=== PATIENT | female | born 1945 | race Caucasian/White ===

== ENCOUNTER 2019-02-16 16:09 | Inpatient (IN) ==
[2019-02-16 17:34] LABS: HEMATOCRIT 42.7 % (37.0-47.0); HEMOGLOBIN 14.7 g/dL (12.0-16.0); MCH 33.3 PG (27-31); MCHC 34.4 g/dL (33-37); MCV 96.8 FL (81-99); RBC 4.41 XMIL (4.2-5.4); RDW 13.8 % (11.5-14.5); WBC 9.52 X1000 (4.8-10.8)
--- NOTE | 2019-02-16 17:36 | Diag Imaging Result Doc PS360 ---
CHEST-PORTABLE - 02/16/2019 INDICATION: dyspnea COMPARISON: None FINDINGS: Lungs are very hyperexpanded compatible with COPD. There has been prior right mastectomy and there are surgical clips in the right axillary soft tissues. Heart size is normal. No infiltrates or edema. There is left hilar enlargement. IMPRESSION: Advanced COPD. Possible left hilar enlargement. Follow-up two-view chest x-ray or chest CT recommended. Electronically signed by Mal Fernandez 02/16/2019 5:34 PM
[2019-02-16 18:05] LABS: AGAP 15; BUN 14 mg/dL (8-22); CALCIUM 9.7 mg/dL (8.8-10.2); CHLORIDE 100 mmol/L (98-107); COSMO 280; CREATININE 0.9 mg/dL (0.5-0.9); ESTIMATED GFR > 60; GLUCOSE 137 mg/dL (70-104); POTASSIUM 4.5 mmol/L (3.5-5.1); SODIUM 139 mmol/L (136-145); TCO2 24 mmol/L (25-35)
--- NOTE | 2019-02-16 19:54 | Diag Imaging Result Doc PS360 ---
CT ANGIOGRM PULMONARY ARTERIES - 02/16/2019 INDICATION: HYPOXIA, TACHYCARDIA, D DIMER 7.38 TECHNIQUE: Axial CT images were obtained after administering intravenous contrast. Coronal MIP images were generated. COMPARISON: None FINDINGS: There are extensive bilateral pulmonary emboli. There are large emboli in all the lobar pulmonary arteries and several segmental arteries. There is right heart enlargement indicating right heart strain. The lungs are grossly clear. Bones are intact. IMPRESSION: Extensive bilateral pulmonary emboli with a high clot burden. This report was discussed with [facility] emergency department RN on 02/16/2019 at 7:45 PM and was readback. This exam was performed using automated exposure control, adjustment of mA or kV according to patient size, and/or use of iterative reconstruction technique Electronically signed by Mal Fernandez 02/16/2019 7:51 PM
[2019-02-16] MEDS ORDERED: PHENERGAN IV PRN (20:22)
[2019-02-16] MEDS ORDERED: LOVENOX SUBQ ONE (20:22)
[2019-02-16] MEDS ORDERED: SODIUM CHLORIDE 0.9% INJ PRN (20:22)
[2019-02-16] MEDS ORDERED: TYLENOL PO PRN ×2 (20:22→22:24)
[2019-02-16] MEDS: NS 1,000 ML IV SCH (21:19)
[2019-02-17] MEDS ORDERED: CARDIZEM IV ONE ×2 (01:16→01:32)
--- NOTE | 2019-02-17 02:13 | EKG Report ---
Test Performed on : 02/17/2019 00:57:48 AM Test Reason : possible afib Blood Pressure : / mmHG Vent. Rate : 123 BPM Atrial Rate : 122 BPM P-R Int : 000 ms QRS Dur : 120 ms QT Int : 344 ms P-R-T Axes : 000 076 -01 degrees QTc Int : 492 ms Atrial fibrillation. with rapid ventricular response. Nonspecific intraventricular conduction delay ST & T wave abnormality, consider inferior ischemia Abnormal ECG When compared with ECG of 16-FEB-2019 16:17, (Unconfirmed) Atrial fibrillation. has replaced Sinus rhythm. Minimal criteria for Inferior infarct are no longer present Confirmed by Jennifer MICHELLE, Andrés Alcala ([id number]) on 02/27/2019 9:24:22 PM
[2019-02-17] MEDS: LANOXIN IV ONE ×2 (02:54→03:21)
[2019-02-17 05:28] LABS: BASO# 0.01 X1000 (0.0-0.2); BASO% 0.1 % (0.0-0.8); HEMATOCRIT 39.9 % (37.0-47.0); HEMOGLOBIN 13.6 g/dL (12.0-16.0); IMM GRAN# 0.07 X1000 (0.0-0.04); IMM GRAN% 0.8 % (0.0-0.5); LYMPH# 0.92 X1000 (1.2-3.4); LYMPH% 10.2 % (20.5-51.1); MCH 33.7 PG (27-31); MCHC 34.1 g/dL (33-37); MCV 98.8 FL (81-99); MONO# 0.87 X1000 (0.11-0.59); MONO% 9.6 % (1.7-9.3); MPV 10.8 FL (7.4-10.4); NEUT# 7.15 X1000 (1.4-6.5); NEUT% 79.3 % (42.2-75.2); PLT 150 X1000 (130-400); RBC 4.04 XMIL (4.2-5.4); WBC 9.02 X1000 (4.8-10.8)
[2019-02-17 06:03] LABS: AGAP 16; BUN 11 mg/dL (8-22); CHLORIDE 102 mmol/L (98-107); COSMO 274; CREATININE 0.5 mg/dL (0.5-0.9); ESTIMATED GFR > 60; GLUCOSE 152 mg/dL (70-104); POTASSIUM 4.1 mmol/L (3.5-5.1); SODIUM 136 mmol/L (136-145); TCO2 18 mmol/L (25-35)
[2019-02-17] MEDS ORDERED: CORDARONE 360 MG/D5W 360 MG/200 ML IV.SOLN IV ONE (08:45)
[2019-02-17] MEDS ORDERED: ATIVAN IV PRN (08:58)
--- NOTE | 2019-02-17 09:12 | EKG Report ---
Test Performed on : 02/16/2019 4:17:45 PM Test Reason : ED. No order in [place] Blood Pressure : / mmHG Vent. Rate : 116 BPM Atrial Rate : 116 BPM P-R Int : 180 ms QRS Dur : 126 ms QT Int : 320 ms P-R-T Axes : 080 074 014 degrees QTc Int : 444 ms Sinus tachycardia. with occasional premature ventricular complexes. Nonspecific intraventricular block Cannot rule out Inferior infarct , age undetermined T wave abnormality, consider anterior ischemia Abnormal ECG When compared with ECG of 10-MAY-2016 06:54, premature ventricular complexes. are now present Vent. rate has increased BY 46 BPM Nonspecific intraventricular block has replaced Right bundle branch block Unconfirmed Result
--- NOTE | 2019-02-17 10:13 | CARDIOLOGY CONSULTATION ---
DATE: 02/17/2019 REQUESTING PHYSICIANS: The services of Dr. Boyer and Dr. Hector Mitchell. REASON FOR CONSULTATION: The patient presents with significant pulmonary embolism and atrial fibrillation. CHIEF COMPLAINT: Dyspnea. HISTORY OF PRESENT ILLNESS: Mrs. Teague is a pleasant, 73-year-old, female, who states that she had been doing quite well. She went on a trip to [facility], [place], and [place], and flew back from [place] and into [facility] on 02/07/2019. Upon arrival, she felt slightly unusual. She thought that she had gotten a cold, and felt progressively more tired over the course of the ensuing few days. Finally, a couple of days prior to admission, she was frankly dyspneic when performing physical activities. She did not experience any pain in the legs or swelling of the legs. No chest pain or syncope. She presented to the ER yesterday upon advice from Dr. Mitchell, who was covering for Dr. Boyer. Upon presentation, a chest x-ray showed advanced COPD with possible hilar enlargement on the left side. Electrocardiogram initially showed sinus tachycardia, PVCs. A pulmonary arteriogram was done yesterday at 6 p.m., and that shows extensive bilateral pulmonary emboli with a high clot burden. The patient subsequently overnight has developed atrial fibrillation with rapid response. She was given IV Cardizem, and that has resulted into some sinus pauses. Eventually, at the time when I walked into her room to see her at about 9:20 in the morning, today, 02/17/2019, she converted back to sinus rhythm. She is lying in bed. She is not having any chest pain or dyspnea at this time. She seems to be comfortable. The patient, at this time, states that she is not in any painful distress or having any unusual symptoms. PAST MEDICAL HISTORY: Positive for an episode of paroxysmal atrial flutter that was very short lasting back in 04/2016. No other history of heart disease. She has had hypothyroidism. PAST SURGICAL HISTORY: Positive for mastectomy in 1999 for breast cancer. She has had appendectomy. HOME MEDICATIONS: She is presently taking Synthroid 112 mcg daily. SOCIAL HISTORY: The patient has been for 50 years, and the reason for her travel to [facility] was to celebrate her 50th anniversary with her . They have two grown up children. Her is in the room with her. 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 She is not a smoker nor a drinker. REVIEW OF SYSTEMS: The patient has not experienced any change in her chest symptoms or abdominal symptoms or musculoskeletal symptoms or ENT visual. No skin disorder. No psychiatric illness. No neurological issues. No genitourinary complaints. No immunity issues. ALLERGIES: No allergies. PHYSICAL EXAMINATION: Vital Signs: Right now, pulse has slowed down to 95 beats per minute, blood pressure is 100/50, temperature 97.8 degrees, respirations 24. General: She is awake, alert, in no distress. She does not appear to be ill. HEENT: Unremarkable. Chest: Sounds fairly clear to auscultation and percussion. Heart: Heart sounds are regular and rhythmic at this time with a third heart sound noted over the left sternal border. Abdomen: Soft, nontender. Extremities: Good pulses. No peripheral edema. I cannot pecan picker any swelling of the legs. Neurological: Follows commands. Moves all 4 extremities. LABORATORY DATA: Sodium is 136, potassium 4.1, BUN 11, creatinine 0.5. Troponin is 0.043. White cell count is 9020, hemoglobin 13.69%. IMPRESSION: 1. Patient who presented to the hospital with dyspnea of relatively short duration, several days following a long trip to [place]. She demonstrates bilateral pulmonary embolism with a large clot burden. 2. Paroxysmal atrial fibrillation, probably in connection with acute dilatation of the right atrium from the pulmonary embolism. 3. History of hypothyroidism. 4. Remote history of breast cancer. RECOMMENDATION: At this time, I would suggest to keep her on parenteral anticoagulation for several days before switching over to oral anticoagulants. Duration of anticoagulation probably should be for life thereafter. We will order an echocardiogram and ultrasound of the legs. Because she has converted to sinus rhythm, probably the best approach will be to just watch her closely. I am not going to add any drug at this time since we really cannot run the risk of causing profound hypotension on her, which could lead to intractable shock. We will see how she does. If she goes back into atrial fibrillation, then we will put her on amiodarone and Tavares-Synephrine. We will be following her closely in the step- down unit. cc: MD Chidi Smith MD MTDD
--- NOTE | 2019-02-17 10:34 | PROGRESS NOTE ---
DATE: 02/17/2019 SUBJECTIVE: Mrs. Marisa Teague was admitted to [facility] with acute respiratory failure with hypoxia secondary to multiple bilateral pulmonary emboli. She is maintaining O2 saturations of 95% to 96% on 3 L. She does have significant shortness of breath with minimal activity, such as attempting to walk to the bathroom. Last night, she converted into atrial fibrillation with RVR. We loaded her with diltiazem and digoxin, and her heart rate improved. Unfortunately this morning, her heart rate continued to fluctuate in the range of 110 to 130. We transferred her to the PVC unit, where we were going to a load her with amiodarone. She spontaneously converted back to normal sinus rhythm prior to the initiation of amiodarone. She feels very anxious this morning. OBJECTIVE: Vital Signs: Temperature 97.8 degrees, pulse 104, respiratory rate 24, BP 103/50. CV: Tachycardic. Regular S1, S2. Lungs: Clear. Abdomen: Soft, nontender, with active bowel sounds. Extremities: No unilateral edema or palpable cords were noted. ASSESSMENT AND PLAN: 1. Acute respiratory failure with hypoxia secondary to bilateral pulmonary emboli. We will continue Lovenox 1 mg/kg subcutaneously twice daily. Clotting studies, including protein C, protein S, factor V Leiden, and antithrombin 3 are pending. I suspect that her blood clots are related to her recent travels to [place]. We will continue Lovenox 1 mg/kg subcutaneously twice daily. I hope to be able to transition her to oral anticoagulants, such as Xarelto or Eliquis. If her clotting abnormalities are normal, she will need anticoagulation for a period of 6 months. If any of her clotting studies are abnormal, she will need lifelong anticoagulation. 2. Paroxysmal atrial fibrillation with rapid ventricular response. She has converted back to normal sinus rhythm. She had previous workup of paroxysmal atrial flutter in the past. Certainly, elevated pressures in the right side of the heart in the setting of pulmonary emboli will increase the likelihood of arrhythmia, such as atrial fibrillation. We will continue to monitor her closely. I have consulted Dr. Pinedo to see her as well. 3. Hypothyroidism. I will continue levothyroxine 112 mcg daily, and check a TSH and free T4. cc: MD Chidi Morgan MD
--- NOTE | 2019-02-17 11:03 | HISTORY AND PHYSICAL ---
CHIEF COMPLAINT: Shortness of breath and palpitations. HISTORY OF PRESENT ILLNESS: Ms. Marisa Sams is a 73-year-old, lady with a history of primary hypothyroidism and breast cancer, status post right mastectomy, who is followed as an outpatient by Dr. Chidi Boyer. She presented to the ER with a 1-week history of shortness of breath and persistent palpitations with her heart rate in the range of 110 to 130. She reported that she had shortness of breath with minimal activity. She felt very weak and lethargic, and unable to perform activities of daily living. Her heart constantly raced away with her. She denied any PND, orthopnea, or increasing peripheral edema. She did not have any unexplained cough, chest pain, or increasing peripheral edema. Her chest x-ray demonstrated COPD type changes but no evidence of interstitial edema, effusions, or pneumoniae. Interestingly, she had recently returned home from a trip to [facility]. She has had no previous history of a DVT or PTE. Her D-dimer was elevated at 7.38. A CT pulmonary angiogram demonstrated multiple bilateral pulmonary emboli. PAST MEDICAL HISTORY: Paroxysmal atrial flutter, breast cancer, status post right mastectomy, primary hypothyroidism. PAST SURGICAL HISTORY: Bilateral cataract excision, right mastectomy. ALLERGIES: No known drug allergies. FAMILY HISTORY: Her father of complications of pancreatic cancer. MEDICATIONS: Levothyroxine 112 mcg daily. SOCIAL HISTORY: She is and lives with her spouse. She does not smoke. She does consume alcoholic beverages. REVIEW OF SYSTEMS: She denies any recent weight gain or weight loss. HEENT: She wears glasses. Cardiovascular: See HPI. Pulmonary: See HPI. GI: No reflux, dysphagia, melena, hematochezia, change in bowel habits, or rectal bleeding. Endocrine: No polyuria, no polydipsia. No cold or heat intolerance. Skin: No easy bruisability. : No leakage of urine with coughing or laughing. Skin: No easy bruisability. Neurologic: No migraines or seizures. Psychiatric: No history of depression. PHYSICAL EXAMINATION: GENERAL: This is a well-developed, well-nourished, 73-year-old, lady in mild distress secondary to shortness of breath. VITAL SIGNS: Temperature 97.9 degrees, pulse 124, respiratory rate 18, BP 115/79, O2 saturation 97% on room air. HEENT: Fundi with sharp discs and vessels. Pupils equal, round, reactive to light. Extraocular eye movements intact. TMs without bullae. NECK: Supple. No masses, JVD, or bruits. CV: Tachycardic. Regular S1, S2. LUNGS: Clear. ABDOMEN: Soft, nontender, with active bowel sounds. No hepatosplenomegaly. No abdominal bruits. SKIN: No palpable purpura. /RECTAL/BREASTS: Examinations deferred. EXTREMITIES: No peripheral edema or obvious palpable cords on examination. Distal pulses are 2+ and symmetric. NEUROLOGIC: Nonfocal. ASSESSMENT AND PLAN: 1. Acute respiratory failure with hypoxia secondary to bilateral pulmonary emboli. Her oxygen saturation dropped to 88% on room air and we started her on supplemental oxygen. I will begin Lovenox 1 mg/kg subcutaneously twice a day. I will check clotting studies including antithrombin 3, protein C, protein S, factor V Leiden. If there are clotting abnormalities, she will need lifelong anticoagulation. We talked about the benefits and potential side effects of medicines such as Xarelto, Eliquis, Pradaxa, and Coumadin. It would be my hope to transition her to medicines like Eliquis or Xarelto at the time of discharge. 2. Primary hypothyroidism. I will check a TSH and free T4, and adjust the dosage of levothyroxine as needed. 3. Given her clinical presentation and comorbid conditions, I believe that admission to the hospital is absolutely necessary. She is at a high risk for sudden by attempting to treat her as an outpatient. I anticipate that she will be in the hospital for at least 2 midnights and I will therefore place her in inpatient status. We will begin Lovenox 1 mg/kg subcutaneously twice a day because of the underlying pulmonary thromboembolism. cc: MD Chidi Morgan MD
[2019-02-17] MEDS: NS 1,000 ML IV SCH (11:12)
[2019-02-17] MEDS: LOVENOX SUBQ SCH ×2 (11:21→21:04)
[2019-02-17] MEDS: ATIVAN IV PRN ×3 (11:44→21:03)
[2019-02-17] MEDS ORDERED: NS 250 ML ONE (12:27)
[2019-02-17 12:30] LABS: INR 1.06; PROTIME 13.9 Seconds (11.0-16.0)
[2019-02-17] MEDS ORDERED: CORDARONE 540 MG in D5W 289.2 ML IV ONE (14:45)
--- NOTE | 2019-02-17 17:24 | ECHO REPORT ---
ORDER DATE: 02/17/2019 INTERPRETING PHYSICIAN: Dr. Pinedo CLINICAL INDICATIONS: Pulmonary embolism, massive. Borderline elevation of troponin. Dyspnea. M-MODE MEASUREMENTS: Left ventricle end diastole: 2.3 cm. Left ventricle end systole: 2.3 cm. Posterior wall: 0.9 cm. Interventricular septum: 0.9 cm. Left atrium: 2.1 cm. Aortic diameter: 2.9 cm. SUMMARY OF 2-DIMENSIONAL IMAGIN. The left ventricular function is actually normal. Ejection fraction is probably in the order of 65%. There is flattening of the interventricular septum during diastole and a little bit in systole with the septum assuming a "D" shape. That indicates significant pressure and volume overload on the right side of the heart. 2. The right ventricle is dilated significantly and it shows mild to moderate hypokinesis in a global manner. 3. The tricuspid valve shows mild to moderate degree of regurgitation with inferior vena cava that measures up to 19 mmHg. 4. The pulmonary pressure is estimated at 62 mmHg. That is elevated. 5. Mitral valve is grossly normal. Color flow mapping shows no significant regurgitation. 6. Pulsed wave Doppler of mitral inflow shows reversal of the E and the A ratio at 0.7. 7. Tissue Doppler of septal and lateral mitral annulus in this case is normal. E prime is 10 cm. 8. The pulmonic valve shows a mild degree of regurgitation. 9. The aortic valve is normal. 10.A 1.2 cm in width mobile mass is noted within the lumen of the right pulmonary artery distally, consistent with a thrombus. 11.There is no pericardial effusion. CONCLUSIONS: In summary, this study shows the presence of 1. Enlargement of right ventricle with mild to moderate hypokinesis. 2. Moderately significant pulmonary hypertension estimated at 62 mmHg. 3. Thrombus noted within the lumen of the right pulmonary artery distally. 4. Normal left ventricular systolic function with ejection fraction of 65%. 5. No diastolic dysfunction of the left ventricle. 6. Unremarkable aortic valve. This study is consistent with an acute pulmonary embolism. cc: MD Chidi Smith MD [facility]
[2019-02-18] MEDS: NS 1,000 ML IV SCH (00:38)
[2019-02-18] MEDS: ATIVAN IV PRN ×2 (03:13→21:21)
[2019-02-18] MEDS: SYNTHROID PO SCH ×2 (05:38→06:52)
[2019-02-18] MEDS: LOVENOX SUBQ SCH ×2 (08:49→21:22)
--- NOTE | 2019-02-18 12:42 | CARDIOLOGY PROGRESS NOTE ---
DATE: 02/18/2019 CHIEF COMPLAINT: Shortness of breath. Weakness. SUBJECTIVE: Mrs. Teague feels somewhat better today. Her echocardiogram yesterday was consistent with acute right ventricular failure from massive pulmonary embolism. At this time, she has maintained sinus rhythm and she seems to be stable, lying in bed comfortably. OBJECTIVE: Blood pressure today is 167/79, temperature 98.2, pulse 74, respirations 27. She is awake, alert, in no distress. HEENT unremarkable. Chest sounds clear to auscultation and percussion. Heart sounds are regular and rhythmic with a third heart sound coming from the right side of the heart. Abdomen is nontender. Extremities showed no edema. Neurologic exam: Follows commands. Moves all four extremities. LABORATORY DATA: Blood work with sodium of 136, potassium 4.1, BUN 11, creatinine 0.5. IMAGING: Her venous ultrasound showed presence of thrombus in the right leg. I believe it is in the popliteal vein and posterior tibialis, I believe. IMPRESSION: 1. The patient who presented with massive bilateral pulmonary embolism. 2. Acute right ventricular failure or acute cor pulmonale secondary to massive pulmonary embolism. 3. Patient with paroxysmal atrial fibrillation secondary to the aforementioned condition. 4. Hypothyroidism. RECOMMENDATIONS: At this time I will suggest to continue conservative management with Lovenox twice a day. Observe her closely. The patient needs to stay in the hospital for a few days and I would strongly recommend to do a followup echo prior to discharge to make sure the RV has shrunk. The patient and her are aware. The case was discussed with Dr. Boyer. cc: MD Chidi Smith MD
[2019-02-18] MEDS ORDERED: NS 1,000 ML IV SCH (13:00)
--- NOTE | 2019-02-18 14:23 | PROGRESS NOTE ---
DATE: 02/18/2019 SUBJECTIVE: The patient has no complaints. States she is feeling much better today, particularly with the resolution of the temporary atrial fibrillation that she was in earlier. Her heart rate has declined significantly and her blood pressure has come up. She denies any worsening shortness of breath. She would like to be mobilized a bit. She has no pain. OBJECTIVE: Vital Signs: 98.3, 74, 20, 167/79, 93% saturated on nasal cannula. Physical Examination: The patient is alert, oriented, conversive, and appropriate. The heart rate is 79. No peripheral edema. No pain in the legs with palpation. ASSESSMENT AND PLAN: 1. Patient has thus far survived a very large clot burden pulmonary thromboembolus. She also has some deep venous thrombosis in the legs that is remaining. I have discussed the case with Dr. Mitchell and Dr. Pinedo, and reviewed all of her chart notes for the weekend. I think she will need to remain on the Lovenox for a few more days with observation and then we can switch her over to Eliquis. Given the large clot burden that she already has as evidenced in her echocardiogram and in her CT angiogram, and with residual clot still in her legs, she is still a considerable risk for worsening. I am okay if she gets up in the chair. We will continue her medications and oxygen supplementation. 2. Labs for a hypercoagulable workup have been submitted and the patient's lupus anticoagulant has been found to be just slightly high. I wonder if this is more Lovenox effect than a true lupus inhibitor. We will await for the other results and we may end up sending her to a leather tooler down the line. She is already followed by oncology for her history of breast cancer. 3. The patient continues to need inpatient observation and treatment for her pulmonary thromboembolism. cc: Chidi Boyer MD
[2019-02-19] MEDS: ATIVAN IV PRN ×2 (01:29→20:26)
[2019-02-19] MEDS: SYNTHROID PO SCH ×2 (05:46→06:08)
--- NOTE | 2019-02-19 07:28 | Extremity Venous Study ---
PROCEDURE NAME: Venous U/S Bilateral Legs - 02/17/2019 PROCEDURE PERFORMED: Bilateral lower extremity venous duplex and color flow imaging study using the [employer] Vivid E9 ultrasound System with a 9L-D transducer. REFERRING PHYSICIAN: Dr. Pinedo. PATIENT IDENTIFICATION: A 73-year-old female. FLOWER ARRANGER: Wilma Romero RVT. INDICATIONS: Massive bilateral pulmonary embolism after recent trip. FINDINGS: Right common femoral vein and its branches, deep and superficial femoral veins were satisfactorily imaged. They had flow through them and were compressible. Right popliteal vein had an acute nonoccluding deep venous thrombosis involving it and this DVT extended below the knee involving the right gastrocnemius veins. The superficial veins of the right lower extremity were compressible throughout their length. The left common femoral vein its branches, deep and superficial femoral veins were also satisfactorily imaged. They had flow through them and were compressible. Left popliteal vein and the deep veins below the left knee were all compressible and had flow through them. The superficial veins of the left lower extremity were compressible throughout their length. INTERPRETATION: Acute nonoccluding deep venous thrombosis involving the right popliteal vein and extending distally below the right knee involving the small veins in the calf. cc: MD Brandon Carmichael MD Timothy P. Weirich, MD
[2019-02-19] MEDS: LOVENOX SUBQ SCH ×2 (09:11→20:26)
--- NOTE | 2019-02-19 14:59 | CARDIOLOGY PROGRESS NOTE ---
DATE: 02/19/2019 CHIEF COMPLAINT: Near syncope, shortness of breath, irregular heartbeat. SUBJECTIVE: Mrs. Teague is feeling better today. She has no palpitations. Her rhythm has remained sinus. She did state that when her atrial fibrillation started she felt dizzy and about to pass out and in fact she did pass out upon the Medical floor where she was staying before she was transferred to the stepdown unit. The is at the bedside. They both agree that she is doing better. OBJECTIVE: Vital signs: Blood pressure is 123/88, pulse 69, temperature 97.0, respirations 23. General: She is awake, alert, in no distress. She coughs intermittently. HEENT: Unremarkable. Chest: Shows slightly diminished breath sounds. There are no rales. Heart: Sounds are regular and rhythmic. The loud third heart sound that was present yesterday is less obvious today. Abdomen: Negative. Extremities: Showed no edema. Neurologic exam: Follows commands, moves all 4 extremities. BLOOD WORK: We do not have any blood work pending today. IMPRESSION: 1. Patient who presented with sudden onset of shortness of breath, near syncope. This is secondary to massive pulmonary embolism. 2. Paroxysmal atrial fibrillation. This is probably also related to the pulmonary embolism. 3. History of hypothyroidism. 4. Deep venous thrombosis right lower extremity. 5. Acute cor pulmonale, secondary to Pulmonary embolism. seems to be better clinically. RECOMMENDATIONS: At this time, we will continue with current management. She is getting enoxaparin twice a day. We will monitor her CBC. We will see how things go over the course of the next few days. I may want to do a followup echocardiogram probably in a couple of days to see how her right ventricle is doing and then decide if we can switch her over to oral anticoagulation. At this time, I would prefer to continue parenteral treatment because of the severity of her embolism. cc: MD Chidi Smith MD MTDD
[2019-02-20 05:47] LABS: BASO# 0.01 X1000 (0.0-0.2); BASO% 0.3 % (0.0-0.8); EOS# 0.05 X1000 (0.0-0.7); EOS% 1.3 % (0.0-10.0); IMM GRAN# 0.06 X1000 (0.0-0.04); IMM GRAN% 1.6 % (0.0-0.5); LYMPH# 1.13 X1000 (1.2-3.4); LYMPH% 29.2 % (20.5-51.1); MCH 33.1 PG (27-31); MCHC 33.3 g/dL (33-37); MCV 99.2 FL (81-99); MONO# 0.37 X1000 (0.11-0.59); MONO% 9.6 % (1.7-9.3); MPV 10.2 FL (7.4-10.4); NEUT# 2.25 X1000 (1.4-6.5); PLT 185 X1000 (130-400); RBC 3.63 XMIL (4.2-5.4); RDW 13.6 % (11.5-14.5); WBC 3.87 X1000 (4.8-10.8)
[2019-02-20] MEDS: SYNTHROID PO SCH (06:00)
[2019-02-20] MEDS: LOVENOX SUBQ SCH ×2 (08:52→20:49)
--- NOTE | 2019-02-20 11:59 | CARDIOLOGY PROGRESS NOTE ---
DATE: 02/20/2019 CHIEF COMPLAINT: Irregular heartbeat, shortness of breath, near syncope, dizziness. SUBJECTIVE: Mrs. Teague is feeling better. She has been able to get up and use the commode and sit up in a chair. Her breathing seems to be getting better. OBJECTIVE: Vital signs: Blood pressure right now is 110/66, temperature 98.6, pulse 73, respirations 18. General: She is awake, alert, in no distress. HEENT: Unremarkable. Chest: Sounds clear to auscultation and percussion. Heart: Sounds are regular and rhythmic. There is a third heart sound that is not as prominent as 2 days ago. Also, I believe there is a splitting of the second sound . No murmur noted. Abdomen: Nontender. Extremities: Showed no edema. Neurologic exam: Follows commands, moves all 4 extremities. BLOOD WORK: Platelet count today is 185,000. Hemoglobin is 12 g, hematocrit 36%. Her troponin level today is negative. ProBNP is 562, normal is 353 pg/mL. Magnesium 2.0. IMPRESSION: 1. Patient who presented with massive pulmonary embolism and acute cor pulmonale. 2. Paroxysmal atrial fibrillation secondary to number 1. 3. History of hypothyroidism. 4. Question of hypercoagulable syndrome. 5. Deep venous thrombosis of right lower extremity. RECOMMENDATIONS: At this time, we will continue supportive care. I will get a followup ECG in the morning and consideration may be at getting a Hematology consultation regarding possible hypercoagulable syndrome. At any rate, I suspect that this patient is going to need anticoagulation for life. I would suggest to do a followup echocardiogram on Monday morning and if this echocardiogram shows significant improvement of the RV function and the patient is doing better she could probably be discharged home with instructions to take Eliquis 5 mg b.i.d. for life and whether or not we should add a baby aspirin to that regimen may be worth discussing. We will follow her. cc: MD Chidi Smith MD [facility]
--- NOTE | 2019-02-20 12:49 | PROGRESS NOTE ---
DATE: 02/19/2019 SUBJECTIVE: The patient has no complaints. She is reasonably comfortable. She denies any difficulty breathing. She has had no palpitations. OBJECTIVE: Vital signs: 97.6, 69, 23, 123/88. The patient is 96% saturated on 3 L nasal cannula. PHYSICAL EXAMINATION: General: The patient is alert, oriented, conversant, and appropriate. Lungs: Clear. Cardiovascular: Regular. Extremities: Show no peripheral edema and no tenderness to palpation. LABORATORY: The patient's circulating lupus anticoagulant was very slightly positive, protein C and protein S activity were normal. Antithrombin III activity was barely low. ASSESSMENT AND PLAN: 1. The patient continues to recover from her pulmonary thromboembolism. It appears that her oxygen saturations are improving. Her heart rate has remained under control and she has developed no further atrial fibrillation. We plan to gingerly increase her activity level, continue Lovenox, and we will repeat an echocardiogram prior to discharge likely on Monday. I would like to have the patient off oxygen altogether at the time of discharge. 2. Breast cancer. We are aware. 3. We are monitoring blood pressure as it has been rather fluctuant throughout her hospitalization at this point. cc: Chidi Boyer MD
--- NOTE | 2019-02-20 12:54 | PROGRESS NOTE ---
DATE: 02/20/2019 SUBJECTIVE: The patient has no complaints. She states that she is feeling better daily. She has been able to get up and go to the bedside commode. She is sitting up to eat meals. She is still somewhat tethered to the machinery around her but feels well and has no other complaints. We had a long discussion with the patient and her again discussing mechanisms of recurrence for her problem and the likelihood of her complete recovery and the treatment plan going forward. OBJECTIVE: Vital signs: 97.8, 64, 22, 126/76, 99% saturated on 3 L nasal cannula. PHYSICAL EXAMINATION: General: The patient is alert, oriented, conversant, and appropriate. Lungs: Clear in all muñoz. Cardiovascular: Regular without ectopy. There is no atrial fibrillation. Extremities: Unchanged from previous exam. LABORATORY: White cell count is 3.8, hemoglobin is 12, hematocrit 36. ProBNP is 562. Troponin was negative. Magnesium 2.0. ASSESSMENT AND PLAN: 1. Patient continues Lovenox treatment for her pulmonary thromboembolus. She will likely go home on [facility] at the end of her stay. We plan on repeating an echocardiogram to document hopefully a decline in the right ventricular strain that she was undergoing as a result of the embolus. 2. Breast cancer. Aware. 3. Hypertension. Aware. Again, blood pressures are fluctuating a bit. cc: Chidi Boyer MD
[2019-02-20 20:19] LABS: AGAP 12; BUN 11 mg/dL (8-22); CALCIUM 9.1 mg/dL (8.8-10.2); CHLORIDE 102 mmol/L (98-107); COSMO 282; CREATININE 0.7 mg/dL (0.5-0.9); ESTIMATED GFR > 60; GLUCOSE 122 mg/dL (70-104); SODIUM 141 mmol/L (136-145); TCO2 27 mmol/L (25-35)
[2019-02-20] MEDS: ATIVAN IV PRN (20:49)
[2019-02-21] MEDS: SYNTHROID PO SCH ×2 (05:35→06:22)
[2019-02-21 06:15] LABS: BASO# 0.01 X1000 (0.0-0.2); BASO% 0.3 % (0.0-0.8); EOS# 0.03 X1000 (0.0-0.7); EOS% 0.8 % (0.0-10.0); HEMATOCRIT 36.4 % (37.0-47.0); HEMOGLOBIN 12.1 g/dL (12.0-16.0); IMM GRAN# 0.07 X1000 (0.0-0.04); IMM GRAN% 1.9 % (0.0-0.5); LYMPH# 1.18 X1000 (1.2-3.4); LYMPH% 31.4 % (20.5-51.1); MCH 33.2 PG (27-31); MCHC 33.2 g/dL (33-37); MONO# 0.28 X1000 (0.11-0.59); MONO% 7.4 % (1.7-9.3); NEUT# 2.19 X1000 (1.4-6.5); NEUT% 58.2 % (42.2-75.2); PLT 195 X1000 (130-400); RBC 3.64 XMIL (4.2-5.4); RDW 13.4 % (11.5-14.5); WBC 3.76 X1000 (4.8-10.8)
--- NOTE | 2019-02-21 07:49 | PROGRESS NOTE ---
DATE: 02/21/2019 SUBJECTIVE: The patient has no complaints. I saw her early this morning and she was awake and alert and very acetylene torch burner. She denied any ongoing shortness of breath, palpitations or chest pain. PHYSICAL EXAMINATION: Vital Signs: 98.0, 57, 14, 119/72, 99% saturated on 3 L nasal cannula. I turned her nasal cannula down to 2 L and she still maintained 97% oxygen saturation through her conversation. Lungs: The patient's lungs are clear. Respirations are unlabored. She has good air movement. Cardiovascular: Regular at approximately 60 beats per minute at the time of my examination. Extremities: No tenderness or edema are noted. LABORATORY: Hematocrit is 36.4. ASSESSMENT AND PLAN: 1. The patient's pulmonary thromboembolism seems to be following a reasonable trajectory recovery. Hopefully, we can wean down her oxygen a bit. She is getting up and going to the bathroom and to the commode chair as necessary. She is sitting up for meals. She has had no adverse problems from this. We discussed the plan going forward with an echocardiogram scheduled for Monday and if all goes well, we may be able to send her home by this weekend with [facility]. I think the main concern was the huge clot burden that she had and the acute cor pulmonale as a result of the pulmonary thromboembolism. 2. On an outpatient basis we will have to look at her coagulation studies again since there were a couple of abnormalities, although I do not think either of them is abnormal enough to lay blame fully for the events that took place. I think she has agreed to see Dr. Coburn on outpatient basis. 3. There has been no recurrence of atrial fibrillation. This was likely due to right-sided enlargement and strain with elevated pressures secondary to the embolus. cc: Chidi Boyer MD
--- NOTE | 2019-02-21 08:24 | EKG Report ---
Test Performed on : 02/21/2019 07:05:15 AM Test Reason : atrial fibrillation Blood Pressure : / mmHG Vent. Rate : 060 BPM Atrial Rate : 060 BPM P-R Int : 174 ms QRS Dur : 116 ms QT Int : 420 ms P-R-T Axes : 025 068 047 degrees QTc Int : 420 ms Normal sinus rhythm. Incomplete right bundle branch block Nonspecific ST abnormality Abnormal ECG When compared with ECG of 17-FEB-2019 00:57, (Unconfirmed) Sinus rhythm. has replaced Atrial fibrillation. Vent. rate has decreased BY 63 BPM Non-specific change in ST segment in Inferior leads T wave inversion no longer evident in Inferior leads T wave inversion less evident in Anterior leads Confirmed by Jennifer MICHELLE, Andrés Alcala ([id number]) on 02/21/2019 8:34:42 AM
[2019-02-21] MEDS: LOVENOX SUBQ SCH ×2 (08:31→20:35)
--- NOTE | 2019-02-21 13:45 | CARDIOLOGY PROGRESS NOTE ---
DATE: 02/21/2019 CHIEF COMPLAINT: Shortness of breath and near syncope. Irregular heartbeat. SUBJECTIVE: Ms. Teague is generally doing better. She is not having any further bouts of chest pain or shortness of breath. Telemetry shows sinus rhythm. EKG done today shows sinus rhythm with incomplete right bundle branch block. No ischemic changes. OBJECTIVE: Vital Signs: Blood pressure is 137/76, temperature 98.4, pulse 68, and respirations 16. General: The patient is awake, alert, oriented, and in no distress. HEENT: Unremarkable. Respiratory: Chest sounds clear to auscultation and percussion. Cardiac: Heart sounds are regular and rhythmic. Today I do not hear the gallop rhythm that she had before. Gastrointestinal: The abdomen is soft. Extremities: The extremities show no edema. Neurological: Follows commands and moves all extremities. IMPRESSION: 1. Patient who presented with massive pulmonary embolism. 2. Acute cor pulmonale with paroxysmal atrial fibrillation secondary to the massive pulmonary embolism. 3. Hypothyroidism. RECOMMENDATIONS: At this time I will continue the present therapy. I will arrange for an echocardiogram to be done in the morning and if that shows as expected improvement of her RV function she may be switched over to Eliquis and discharged later on tomorrow. We will follow her at the office. cc: MD Chidi Smith MD
[2019-02-21] MEDS: ATIVAN IV PRN (20:34)
[2019-02-22] MEDS ORDERED: CATHFLO IV ONE (06:33)
[2019-02-22] MEDS ORDERED: STERILE WATER INJ. INJ ONE (06:33)
[2019-02-22] MEDS: SYNTHROID PO SCH (06:35)
[2019-02-22 06:37] LABS: BASO# 0.01 X1000 (0.0-0.2); BASO% 0.3 % (0.0-0.8); EOS# 0.04 X1000 (0.0-0.7); HEMATOCRIT 37.2 % (37.0-47.0); HEMOGLOBIN 12.4 g/dL (12.0-16.0); IMM GRAN# 0.07 X1000 (0.0-0.04); IMM GRAN% 1.8 % (0.0-0.5); LYMPH# 1.28 X1000 (1.2-3.4); LYMPH% 33.2 % (20.5-51.1); MCH 33.2 PG (27-31); MCHC 33.3 g/dL (33-37); MCV 99.5 FL (81-99); MONO# 0.42 X1000 (0.11-0.59); MONO% 10.9 % (1.7-9.3); MPV 10.1 FL (7.4-10.4); NEUT# 2.04 X1000 (1.4-6.5); NEUT% 52.8 % (42.2-75.2); PLT 201 X1000 (130-400); RBC 3.74 XMIL (4.2-5.4); RDW 13.5 % (11.5-14.5); WBC 3.86 X1000 (4.8-10.8)
[2019-02-22 07:51] VITALS: BP 124/74
--- NOTE | 2019-02-22 08:00 | CARDIOLOGY PROGRESS NOTE ---
DATE: 02/22/2019 CHIEF COMPLAINT: Dizziness, near syncope, weakness, shortness of breath, irregular heartbeat. SUBJECTIVE: Ms. Teague is feeling better. Blood work today shows a hemoglobin of 12.4, platelet count 201,000. Her echocardiogram done yesterday shows reduction in the size of the right ventricle with normal RV function now. Pulmonary pressure remains moderately elevated. Left ventricle is normal. There is less septal flattening. That indicates decrease in the right ventricular afterload. OBJECTIVE: Vital signs: Blood pressure is 110/72, temperature 97.8, pulse 79, respirations 18. General: She is awake, alert, oriented, in no distress. HEENT: Unremarkable. Chest: Sounds clear to auscultation and percussion. Heart: Sounds are regular and rhythmic. No gallop or murmur. Abdomen: Her abdomen is nontender, soft. No masses. No hepatomegaly. Extremities: Showed good pulses. No peripheral edema. Neurologic exam: Follows commands, moves all 4 extremities. IMPRESSION: 1. Patient who is recuperating from an acute pulmonary embolism with acute cor pulmonale, near syncope, and consequent paroxysmal atrial fibrillation. 2. Deep venous thrombosis right leg. 3. Hypothyroidism. RECOMMENDATIONS: At this time, we will give her a final dose of Lovenox this morning and will initiate Eliquis 5 mg twice a day this afternoon. From my viewpoint, I think the patient may be discharged and I will arrange for a followup with us at the office. My personal bias is that she will require anticoagulation for life with Eliquis. We will see how she does. I will discuss with Dr. Boyer. cc: MD Chidi Smith MD
[2019-02-22] MEDS: LOVENOX SUBQ SCH (08:31)
[2019-02-22] MEDS ORDERED: ELIQUIS PO SCH (09:00)
--- NOTE | 2019-02-25 10:39 | ECHO REPORT ---
ORDER DATE: 02/21/2019 INDICATION: Pulmonary embolus. FINDINGS: 1. The right atrium appears normal in size at 3.9 cm. 2. Mild tricuspid regurgitation. RV systolic pressure of 56 suggesting pulmonary hypertension. 3. There is mild enlargement of the right ventricle with mild hypokinesis. 4. Mild pulmonic insufficiency. 5. Normal left atrial size at 2.8 cm. 6. There is no clear evidence of mitral valve prolapse. Trace mitral regurgitation identified. 7. Normal LV size, end-diastolic dimension of 4.4. Normal wall thicknesses with a posterior and interventricular septal wall thickness of 0.8 cm each. Normal LV systolic function. Estimated EF of 65%. 8. Aortic valve opens well. It is trileaflet. No clear evidence of stenosis or significant insufficiency. 9. The aorta appears normal in visualized segments. 10. No pericardial effusion seen. cc: MD Chidi Lugo MD
--- NOTE | 2019-02-26 10:29 | DISCHARGE SUMMARY ---
ADMISSION DATE: 02/16/2019 DISCHARGE DATE: 02/22/2019 DISCHARGE DIAGNOSES: 1. Pulmonary thromboembolism with high clot burden. 2. Deep venous thrombosis. 3. History of breast cancer. 4. Hypothyroidism. HOSPITAL COURSE: The patient presented to the emergency room several days after returning home from extensive trip to [place] including a 9.5 hour flight back to the [place] She developed some type of upper respiratory infection at the very end of her trip, and does recall one episode of a really massive coughing spell. She denied any chest pain or palpitations, but after that time she became progressively short of breath and was panting quite a bit, even with minimal exertion. She was brought to the emergency room, had an elevated D-dimer, and was found to have extensive pulmonary thromboembolism. The patient was admitted and started on Lovenox. Consultation from Cardiology was undertaken. Echocardiogram showed right ventricular strain and acute cor pulmonale. We continued to monitor the patient with cardiology's help on the Lovenox, and her symptoms gradually improved. The day after admission the patient flipped into atrial fibrillation briefly, but this was relatively short-lived, and was treated effectively with medications. She did not have any recurrence of atrial fibrillation after that. The patient's coagulation studies had some abnormalities in particular slightly elevated circulating lupus anticoagulated, and a slightly low antithrombin 3 level. Repeat echocardiogram prior to discharge showed after several days of blood thinner and rest that the patient's right ventricle had recovered a great deal. She also had adequate room air oxygenation as this has been improving throughout her hospitalization as well. Dr. Pinedo approved discharge, and she was sent home with a prescription for 5 mg of Eliquis twice daily. She is instructed to follow up with me in 2 weeks, and follow up with Dr. Pinedo in approximately 1 month. We will likely do an outpatient hematologic consult to resolve the issues with her abnormal coag studies. cc: Chidi Boyer MD
== END 2019-02-22 11:40 | disposition home or self-care (01) | DRG 175 ==
LOC: ED 16:09 → 3N 19:43 → 2N 02-17 09:46
PROVIDERS: ADMIT Internal Medicine; ATTEND Internal Medicine